=== PATIENT | female | born 1950 | race Caucasian/White ===

== ENCOUNTER 2022-06-06 16:37 | Emergency (ER) | payer BC, OTHER ==
[~2022-06-06] VITALS: Ht 143.5 cm; Wt 58.7 kg
[2022-06-06 16:56] VITALS: BP 186/82
--- NOTE | 2022-06-06 17:07 | NUR ---
PT AMB TO BED 10.
--- NOTE | 2022-06-06 17:20 | NUR ---
71 Y/O FEMALE C/O ABDOMINAL PAIN X 11AM TODAY. EPIGASTRIC PAIN THAT RADIATES TO PELVIC REGION AND LOWER BACK. 6/10, INTERMITTENT, SHARP PAIN, WORSENING WITH MOVEMENT. DENIES TAKING MEDICATION FOR PAIN. REPORTS EATING SPICY FOOD THIS MORNING. NAUSEA W/OUT VOMITING X TODAY. DENIES FEVER, CP, DYSURIA, DIARRHEA, OR CHANGES IN BOWEL PATTERN. ABDOMEN IS SOFT, FLAT, GUARDING NOTED WITH PALPATION. PMH: DM, DEPRESSION ALL: PCN, PINEERIC
--- NOTE | 2022-06-06 17:31 | NUR ---
PT AMBULATED TO RESTROOM WITH STEADY GAIT
--- NOTE | 2022-06-06 17:43 | NUR ---
Dr Waldron at bedside for evaluation
--- NOTE | 2022-06-06 17:49 | NUR ---
taken to ct via joaquín
[2022-06-06 18:17] LABS: APPEARANCE,URINE CLEAR (CLEAR); BILIRUBIN,URINE NEGATIVE (NEGATIVE); BLOOD, URINE 2+ (NEGATIVE); COLOR,URINE YELLOW (YELLOW); LEUKOCYTE ESTERASE ,URINE NEGATIVE (NEGATIVE); NITRITE, URINE NEGATIVE (NEGATIVE); UGLUCOSE NEGATIVE (NEGATIVE)
[2022-06-06 18:29] LABS: WBC,URINE 0-5 /HPF (0-5)
[2022-06-06 18:30] LABS: OTHER CASTS, URINE None Seen /LPF (None Seen); URIC ACID CRYSTALS,URINE 0-10 /HPF (None Seen)
[2022-06-06 18:32] LABS: BASOPHILS # (AUTO) 0.1 K/uL (0.00-0.22); BASOPHILS % (AUTO) 0.5 % (0.0-2.0); EOSINOPHILS % (AUTO) 0.4 % (0.0-4.0); HEMOGLOBIN 13.5 g/dL (12.0-16.0); LYMPHOCYTES # (AUTO) 1.6 K/uL (2.5-16.5); LYMPHOCYTES % (AUTO) 15.3 % (20.5-51.1); MEAN CORPUSCULAR HEMOGLOBIN 31 pg (27-31); MEAN CORPUSCULAR HGB CONC 34 g/dL (33-37); MEAN CORPUSCULAR VOLUME 92.9 fL (80-94); MONOCYTES # (AUTO) 0.7 K/uL (0.8-1.0); MONOCYTES % (AUTO) 6.2 % (1.7-9.3); NEUTROPHILS # (AUTO) 8.1 K/uL (1.8-7.7); NEUTROPHILS % (AUTO) 77.6 % (42.2-75.2); PLATELET COUNT (AUTO) 210 K/uL (140-450); RED BLOOD CELL COUNT(AUTO) 4.31 MIL/uL (4.20-5.40); RED CELL DISTRIBUTION WIDTH 12.6 % (11.6-13.7); WHITE BLOOD COUNT (AUTO) 10.5 K/uL (4.8-10.8)
[2022-06-06 19:01] LABS: ALBUMIN 3.5 g/dL (3.4-5.0); ANION GAP 12.8 (8-16); ASPARTATE AMINOTRANSFERASE 27 U/L (15-37); CARBON DIOXIDE 24.3 mmol/L (21-32); CHLORIDE 106 mmol/L (98-107); CREATININE 0.9 mg/dL (0.6-1.3); GFR ARICAN-AMERICAN 80 mL/min (>90); GLUCOSE 135 mg/dL (74-106); LIPASE 110 U/L (73-393); POTASSIUM 4.1 mmol/L (3.5-5.1); SODIUM SERUM 139 mmol/L (136-145); TOTAL BILIRUBIN 0.6 mg/dL (0.0-1.0); UREA NITROGEN, BLOOD 13 mg/dL (7-18)
[2022-06-06] MEDS ORDERED: KETOROLAC 30 MG/ML VIAL IM ONE (19:20)
--- NOTE | 2022-06-06 19:22 | NUR ---
Pt report given to ALONSO Banegas. Transfer of care at this time.
[2022-06-06 19:32] VITALS: BP 154/72
--- NOTE | 2022-06-06 19:34 | NUR ---
Patient discharged with v/s stable. Written and verbal after care instructions given and explained. Patient verbalized understanding. Ambulatory with steady gait. All questions addressed prior to discharge. Advised to follow up with PMD. VSS, A/OX4, UNLABORED BREDATHING, AMBULATORY, AND CALM DEMEANOR.
== END 2022-06-06 19:31 | disposition home or self-care (01) ==
LOC: MED 16:37
DX: R10.13 Epigastric pain (principal); I10 Essential (primary) hypertension
CPT/HCPCS: 36415; 71045; 74176; 80053; 81001; 82948; 83690; 84484; 85025; 93005; 96372; 99285; J1885; Q0092